=== PATIENT | male | born 1995 ===

== ENCOUNTER 2024-11-21 10:03 | Outpatient (CLI) | payer OTHER, SELFPAY | END 2024-11-21 10:04 | disposition home or self-care (01) | LOC: FRMREF 10:04 | PROVIDERS: Visit Provider Family Medicine | DX: Z00.00 Encounter for general adult medical examination without abnormal findings (principal); Z13.6 Encounter for screening for cardiovascular disorders; Z20.1 Contact with and (suspected) exposure to tuberculosis; Z76.89 Persons encountering health services in other specified circumstances | CPT/HCPCS: 80053; 80061; 86480 ==